=== PATIENT | female | born 2000 | race African-American/Black ===

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

== ENCOUNTER → 2018-02-11 | Outpatient (CLI) | payer MEDICAID ==
[~2018-02-11] MED LIST: ALEV220T26 PO; CIPR-249 PO; DIFL150T PO; FLAG500T PO; IBUP-359 PO; KETO10TAB PO; NITR100C2 PO; PYRI1TAB5 PO; REGL10TA6 PO
[2018-02-11 16:40] LABS: HEMATOCRIT 42.7 % (36.0-47.0); HEMOGLOBIN 14.2 g/dl (12.0-15.5); MEAN CORPUSCULAR HGB CONC 33.3 g/dl (32.0-36.5); MEAN CORPUSCULAR VOLUME 78.1 fl (80.0-96.0); PLATELET COUNT, AUTOMATED 421 10^3/uL (150-450); RED BLOOD COUNT 5.47 10^6/uL (4.00-5.40); WHITE BLOOD COUNT 9.6 10^3/uL (4.0-10.0)
--- NOTE | 2018-02-11 18:18 | REP ---
Obstetric sonography: History: Supervision of for dating. Findings: Transabdominal and transvaginal scanning are performed. Uterine dimensions are normal at 7.6 x 3.4 x 5.3 cm. No intrauterine gestation is seen. The endometrium is somewhat heterogeneous and slightly thickened. No definite vascularized endometrial tissue but it is difficult to completely exclude retained products of conception. Normal ovaries seen on the right measuring 3.9 x 2.5 x 3.5 cm. A normal left ovary is seen measuring 3.2 x 1.6 x 2.0 cm. Doppler flow is normal to both ovaries with resistive indices measured 0.51 on the right and 0.66 on the left. Impression: Somewhat heterogeneous thickened endometrium. No intrauterine gestation seen. Electronically Signed by Warren High MD 02/11/2018 07:47 P
== END ==
LOC: M LAB 15:47
PROVIDERS: ATTEND Nurse Practitioner Family
DX: Z32.01 Encounter for pregnancy test, result positive (principal)